=== PATIENT | female | born 1970 | race Asian ===

== ENCOUNTER 2020-07-17 10:13 | Emergency (ER) | payer OTHER, SELFPAY | END 2020-07-17 11:27 | disposition home or self-care (01) | LOC: CSHERS 10:13 | DX: M54.41 Lumbago with sciatica, right side (principal); I25.10 Atherosclerotic heart disease of native coronary artery without angina pectoris; E78.5 Hyperlipidemia, unspecified; Z79.899 Other long term (current) drug therapy; R58 Hemorrhage, not elsewhere classified | CPT/HCPCS: 99282 ==

== ENCOUNTER 2020-07-24 15:21 | Outpatient (CLI) | payer OTHER | END 2020-07-24 15:22 | disposition home or self-care (01) | LOC: CSHRAD 15:21 | PROVIDERS: ATTEND Internal Medicine | DX: M25.551 Pain in right hip (principal); M54.5 Low back pain; Q76.49 Other congenital malformations of spine, not associated with scoliosis; M47.816 Spondylosis without myelopathy or radiculopathy, lumbar region | CPT/HCPCS: 72100 ==